=== PATIENT | female | born 1990 | race Caucasian/White ===

== ENCOUNTER 2023-09-29 14:33 | Outpatient (CLI) | payer BC, SELFPAY | END 2023-09-29 14:34 | disposition home or self-care (01) | PROVIDERS: PCP Physician Assistant Medical; Visit Provider Obstetrics & Gynecology | DX: N97.9 Female infertility, unspecified (principal) | CPT/HCPCS: 84443; 84702 ==

== ENCOUNTER 2023-10-12 18:11 | Emergency (ER) | payer BC, SELFPAY ==
[2023-10-12 18:20] VITALS: BP 145/92; PULSE 106; RESP 16; TEMP 36.7; O2SAT 100; BMI 34.0
--- NOTE | 2023-10-12 18:41 | US_ITS ---
Patient: JAYCOB BARCLAY Facility:?[facility] [place] [facility] Patient ID:?[id number] Site Patient ID:?[id number]. Site :?1990 Study:?US-OB Pelvis OB TV-10/12/2023 8:02:29 PM Ordering Physician:YOLA CRUZ M.D. Final Report: INDICATION: Abdominal pain. Evaluate for ectopic . Beta HCG 9324. TECHNIQUE: Transabdominal and transvaginal limited obstetric ultrasound examination of the pelvis was performed. Grayscale and color Doppler images were obtained. COMPARISON: None. FINDINGS: Uterus: Normal in echotexture. No suspicious masses. Endometrium: No significant endometrial free fluid. Intrauterine gestation: No definite intrauterine gestational sac is identified, the 11 mm cystic structure within the uterus could represent a pseudo gestational sac. cardiac activity: Not detected. Ovett-rump length: Not visualized. Yolk sac: Not visualized Perigestational hemorrhage: No. Estimated sonographic due date: 06/07/2024. Right Ovary: Measures 3.0 x 1.0 x 1.7 cm. No suspicious masses. Normal arterial and venous flow on color Doppler imaging. Left ovary: Measures 3.5 x 1.9 x 2.3 cm. Left corpus luteal cyst. A second, more superior heterogeneously echoic structure within the left ovary measures 1.6 cm, indeterminate. Normal arterial and venous flow on color Doppler imaging. Cul-de-sac: No free fluid. IMPRESSION: 1. No definite intrauterine gestational sac is identified. A embryonic pole should be visualized by 6 weeks gestational age, and the cystic structure within the uterus may represent a pseudogestational sac. This is compatible with of unknown location, ectopic is not excluded. 2. Heterogeneously echogenic structures within the left ovary may represent corpus luteal cyst, and possibly within normal limits in this patient with given history of fertility treatment. No pelvic free fluid to suggest hemoperitoneum. Recommend short interval follow-up beta HCG, repeat pelvic ultrasound and continued obstetric evaluation advised. Findings were communicated with Dr. Rosas at 9:19 PM on 10/12/2023. Dictated by Deangelo Zimmer MD @ 10/12/2023 9:21:23 PM Signed by:?Deangelo Zimmer MD @10/12/2023 9:21:23 PM (Electronic Signature)
--- NOTE | 2023-10-12 18:45 | ED.ABDPAIN ---
HPI - Abdominal Pain General Chief Complaint: Abdominal Pain Stated Complaint: abdominal pain, 6 weeks preg Time Seen by Provider: 10/12/23 18:12 History of Present Illness HPI narrative: This 33-year-old female states that she is about 6 weeks . She was involved in some fertility planning and had a he quantitative beta hCG done 2 weeks ago at 49. She comes in today at the advice of her clinic to rule out ectopic . She states that she has had some severe lower abdominal cramping starting today. She does not report any vaginal bleeding. Related Data Home Medications Medication Instructions Recorded Confirmed metformin 500 mg tablet 500 mg PO TID 09/29/23 09/29/23 docosahexaenoic acid PO 10/12/23 Allergies Allergy/AdvReac Type Severity Reaction Status Date / Time No Known Drug Allergies Allergy Verified 09/29/23 14:19 Review of Systems Status of ROS Reports: 10 or more systems reviewed and unremarkable except as noted in History and below Narrative Constitutional: No fevers, no weight gain or loss. Eyes: No discharge. No vision changes. HENT: No congestion, no sore throat, no ear pain. Cardiovascular: No chest pain, no palpitations. Respiratory: No shortness of breath, no wheezes, no cough. Gastrointestinal: No vomiting, no diarrhea. Lower abdominal pain. Genitourinary: No dysuria, no hematuria. Musculoskeletal: Normal range of motion. Skin: No rashes, no pruritis. Neurological: No dizziness, weakness, sensory change, speech change. Endo/Heme/Allergies: No bruising or bleeding. No polydipsia. Pysch: no suicidality, no anxiety, no insomnia. All other systems reviewed and are negative. [facility] Social History Smoking Status: Never smoker How often do you have a drink containing alcohol: never AUDIT-C Alcohol total score: 0 Non-prescribed substance use: denies use Exam Narrative: Exam Narrative: Constitutional: Well-developed, well-nourished, no acute distress. HEENT: Normocephalic, atraumatic. Neck: Normal range of motion. Nontender. Supple. Heart: Regular. No murmurs. Borderline tachycardia. Intact distal pulses. Lungs: Clear to auscultation. No chest discomfort. No wheezes, rhonchi, or rales. Abdomen: Normal bowel sounds. Diffuse lower abdominal pain. No rebound tenderness. Genitalia: Deferred. Back: No midline tenderness. Normal range of motion. Extremities: Normal range of motion. No injury. Skin: Intact. No rash. Warm. No erythema or pallor. Neurologic: No altered sensation. No weakness. Alert and oriented. Psychiatric: No suicidality. No anxiety or depression. No insomnia. Nursing notes and vitals signs are reviewed. Const: Vital Signs, click to edit/add: Vital Signs - 24 hr 10/12/23 18:20 10/12/23 21:07 Temperature 98.0 F 99.1 F Pulse Rate [Pulse Oximeter] 106 H 102 H Respiratory Rate 16 16 Blood Pressure [Ri ght Upper Arm] 145/92 H 142/88 H Pulse Oximetry 100 98 Oxygen Delivery Me thod Room Air Room Air Course Vital Signs Vital signs: Initial Vital Signs Temperature 98.0 F 10/12/23 18:20 Temperature Source Temporal Artery Scan 10/12/23 18:20 Pulse Rate 106 H 10/12/23 18:20 Respiratory Rate 16 10/12/23 18:20 Blood Pressure 145/92 H 10/12/23 18:20 Blood Pressure Mean 109 H 10/12/23 18:20 Blood Pressure Position Sitting 10/12/23 18:20 Pulse Oximetry 100 10/12/23 18:20 Oxygen Delivery Method Room Air 10/12/23 18:20 Vital Signs Temperature 98.0 F 10/12/23 18:20 Pulse Rate 106 H 10/12/23 18:20 Respiratory Rate 16 10/12/23 18:20 Blood Pressure 145/92 H 10/12/23 18:20 Pulse Oximetry 100 10/12/23 18:20 Oxygen Delivery Method Room Air 10/12/23 18:20 Temperature 99.1 F 10/12/23 21:07 Pulse Rate 102 H 10/12/23 21:07 Respiratory Rate 16 10/12/23 21:07 Blood Pressure 142/88 H 10/12/23 21:07 Pulse Oximetry 98 10/12/23 21:07 Oxygen Delivery Method Room Air 10/12/23 21:07 MDM - Abdominal Pain MDM Narrative Medical decision making narrative: This patient came in reporting abdominal pain as described above. She states that she has round 6 weeks . I did acquire a beta hCG level which returns at 9324. This is appropriate for about a 5 week gestation . An ultrasound is obtained and the radiologist called me stating that he did not see an intrauterine and there was some fluid around the ovaries. There was no fluid in the cul-de-sac and no findings that were obvious for ectopic . I relayed this information to the patient who is tearful of course in that she has been having difficulty getting and now is hearing that she may not have a viable intrauterine . I called the OB physician on-call which is her personal physician who looked at the images and stated that at 5 weeks this looked like a normal in the there was a gestational sac and a pole may not be very visible at this gestational age. The the director of services returned and together we went in to talk with the patient and gave updated information which was very reassuring to her. The OB physician on-call, Dr. Zimmer, is saying that this is what appears to be a normal . It is recommended to return next week for repeat ultrasound and beta hCG level. The patient is greatly reassured with these results and feels okay to return home. She is not having much pain at all anymore. She does have a history of polycystic ovarian disease and has been taking metformin for a long time. She has not had a ruptured ovarian cyst but may have had some pain related to some fluid leaking from her ovaries. Lab Data Labs: Lab Results 10/12/23 Range/Units 18:56 HCG, Quant 9324.40 mIU/mL Discharge Plan Discharge Clinical Impression: Abdominal pain Patient Disposition: Home, Self-Care Condition: Stable Additional Instructions: Follow-up with OB Clinic to obtain ultrasound next week. Return if worsening. Prescriptions: No Action metformin 500 mg tablet 500 mg PO TID docosahexaenoic acid [ DHA] PO Follow Up/Referrals: Norma Rodriguez PA-C [Primary Care Provider] - Stand Alone Forms: [employer] Info Instructions
[2023-10-12 21:07] VITALS: BP 142/88; PULSE 102; RESP 16; TEMP 37.3; O2SAT 98
== END 2023-10-12 21:58 | disposition home or self-care (01) ==
PROVIDERS: Emergency Provider Emergency Medicine Emergency Medical Services; PCP Physician Assistant Medical
DX: R10.9 Unspecified abdominal pain (principal)
CPT/HCPCS: 36415; 76817; 84702; 99283; 99284

== ENCOUNTER 2023-10-16 10:36 | Outpatient (CLI) | payer BC, SELFPAY | END 2023-10-16 10:37 | disposition home or self-care (01) | PROVIDERS: PCP Physician Assistant Medical; Visit Provider Advanced Practice Midwife | DX: Z32.01 Encounter for pregnancy test, result positive (principal); R10.9 Unspecified abdominal pain | CPT/HCPCS: 84702; 87086 ==

== ENCOUNTER 2023-10-19 08:55 | Outpatient (CLI) | payer BC, SELFPAY | END 2023-10-19 08:56 | disposition home or self-care (01) | LOC: NFLDREF 08:56 | PROVIDERS: PCP Physician Assistant Medical; Visit Provider Advanced Practice Midwife | DX: Z34.91 Encounter for supervision of normal pregnancy, unspecified, first trimester (principal) | CPT/HCPCS: 84702 ==

== ENCOUNTER 2023-10-23 08:57 | Outpatient (CLI) | payer BC, SELFPAY ==
--- NOTE | 2023-10-23 09:15 | US_ITS ---
Patient: JAYCOB BARCLAY Facility:?[facility] Patient ID:?[id number] Site Patient ID:?[id number]. Site :?1990 Study:?US-OB Pelvis OB TV-10/23/2023 9:47:58 AM Ordering Physician:?HUNTER REDDING CNM Final Report: INDICATION: Follow-up viability COMPARISON: None. TECHNIQUE: Real-time thurman-scale imaging of the pelvis was performed. FINDINGS: Sonographic imaging demonstrates a single living intrauterine gestation. The embryo demonstrates a regular cardiac rate measuring 121 beats per minute. The embryo`s crown-rump length measurement of 0.7 cm corresponds to a gestational age of 6 weeks 4 days with a sonographic due date of 06/13/2024. There is a normal-appearing yolk sac. There are no gross abnormalities noted within the embryo at this early state of development. The gestational sac has a normal appearance. There is no evidence of a perigestational hemorrhage. The amount of fluid within the sac appears appropriate for gestational age. The cervix is closed. The myometrium appears normal. The left ovary appears normal. The right ovary is not visualized. There are no suspicious fluid collections noted in the cul-de-sac. IMPRESSION: Single living intrauterine with sonographic gestational age 6 weeks 4 days and sonographic due date 06/13/2024. Dictated by Sher Moreland MD @ 10/23/2023 11:37:42 AM Signed by:?Sher Moreland MD @10/23/2023 11:37:42 AM (Electronic Signature)
== END 2023-10-23 08:58 | disposition home or self-care (01) ==
LOC: US 08:57
PROVIDERS: PCP Physician Assistant Medical; Visit Provider Advanced Practice Midwife
DX: Z34.91 Encounter for supervision of normal pregnancy, unspecified, first trimester (principal); Z3A.01 Less than 8 weeks gestation of pregnancy
CPT/HCPCS: 76817; 86592; 86703; 86704; 86706; 86762; 86787; 86803; 86850; 86900; 86901; 87086; 87340; 87491; 87591

== ENCOUNTER 2023-12-18 09:39 | Outpatient (CLI) | payer BC, SELFPAY | END 2023-12-18 09:40 | disposition home or self-care (01) | PROVIDERS: PCP Physician Assistant Medical; Visit Provider Obstetrics & Gynecology | DX: O10.912 Unspecified pre-existing hypertension complicating pregnancy, second trimester (principal); Z3A.14 14 weeks gestation of pregnancy | CPT/HCPCS: 82565; 82570; 84156; 84450; 84460; 84520 ==

== ENCOUNTER 2024-01-25 08:46 | Outpatient (CLI) | payer BC, SELFPAY | END 2024-01-25 08:47 | disposition home or self-care (01) | PROVIDERS: PCP Physician Assistant Medical; Visit Provider Obstetrics & Gynecology | DX: O10.912 Unspecified pre-existing hypertension complicating pregnancy, second trimester (principal); Z3A.20 20 weeks gestation of pregnancy | CPT/HCPCS: 84450; 84460 ==

== ENCOUNTER 2024-02-08 07:45 | Outpatient (CLI) | payer BC, SELFPAY | END 2024-02-08 07:46 | disposition home or self-care (01) | LOC: NFLDREF 02-09 08:44 | PROVIDERS: PCP Physician Assistant Medical; Referring Provider Physician Assistant Medical; Visit Provider Obstetrics & Gynecology | DX: O99.810 Abnormal glucose complicating pregnancy (principal) | CPT/HCPCS: 82951; 82952 ==

== ENCOUNTER 2024-03-07 08:12 | Outpatient (CLI) | payer BC, SELFPAY ==
--- NOTE | 2024-03-07 08:15 | CRLHL7_ITS ---
For Patients: As a result of the Century Cures Act, medical imaging exams and procedure reports are released immediately into your electronic medical record. You may view this report before your referring provider. If you have questions, please contact your health care provider. INDICATION: Third trimester scan, evaluate growth. growth and recheck Succenturiate placenta, GDM COMPARISON: 10/23/2023, 02/09/2024 TECHNIQUE: Real time thurman scale imaging of the fetus was performed. FINDINGS: Sonographic imaging demonstrates a single living intrauterine gestation. Fetus demonstrates a regular cardiac rate of 130 beats per minute. Fetus has a vertex position. The placenta lies left anterior. Succenturiate placenta again noted. Amniotic fluid volume appears normal and there is a single deepest vertical pocket: 5.6 cm. The estimated weight is 1089gm which lies at the 94th %. BPD 88th percentile. HC 70th percentile. AC 92nd percentile. FL 64th percentile the HC/AC ratio measures 1.06 range (1.04-1.22). IMPRESSION: Sonographic gestational age 27 weeks 3 days and sonographic due date of 06/03/2024. Sonographic age 10 days ahead of the clinical age. Estimated weight 94th percentile. Abdominal circumference 92nd percentile. Succenturiate placenta is unchanged. Dictated by Sher Moreland MD @ 03/07/2024 10:30:38 AM (Electronically Signed)
== END 2024-03-07 08:13 | disposition home or self-care (01) ==
LOC: US 08:13
PROVIDERS: PCP Physician Assistant Medical; Visit Provider Obstetrics & Gynecology
DX: O43.192 Other malformation of placenta, second trimester (principal); Z3A.27 27 weeks gestation of pregnancy
CPT/HCPCS: 76816

== ENCOUNTER 2024-03-22 12:23 | Outpatient (CLI) | payer BC, SELFPAY | END 2024-03-22 12:24 | disposition home or self-care (01) | LOC: NFLDREF 12:24 | PROVIDERS: PCP Physician Assistant Medical; Visit Provider Physician Assistant | DX: Z34.93 Encounter for supervision of normal pregnancy, unspecified, third trimester (principal); Z3A.28 28 weeks gestation of pregnancy | CPT/HCPCS: 86592 ==

== ENCOUNTER 2024-04-04 09:19 | Outpatient (CLI) | payer BC, SELFPAY ==
--- NOTE | 2024-04-04 09:15 | CRLHL7_ITS ---
For Patients: As a result of the Century Cures Act, medical imaging exams and procedure reports are released immediately into your electronic medical record. You may view this report before your referring provider. If you have questions, please contact your health care provider. INDICATION: growth, succenturiate placenta COMPARISON: 03/07/2024 TECHNIQUE: Real time thurman scale imaging of the fetus was performed. FINDINGS: Sonographic imaging demonstrates a single living intrauterine gestation. Fetus demonstrates a regular cardiac rate of 142 beats per minute. Fetus has a vertex position. The placenta lies anteriorly. Amniotic fluid volume appears normal and there is a single deepest vertical pocket: 5.6 cm. The estimated weight is 1696gm which lies at the 76th %. On the prior OB ultrasound exam dated 03/07/2024 the estimated weight was at the 94th%. BPD 76th percentile. HC 71st percentile. AC 85th percentile. FL 40th percentile. The HC/AC ratio measures 1.06 range (0.96-1.17). IMPRESSION: Sonographic gestational age 31 weeks 1 day and sonographic due date 06/05/2024. Sonographic age 8 days ahead of the clinical age. Estimated weight 76th percentile. Abdominal circumference 85th percentile. Dictated by Sher Moreland MD @ 04/04/2024 10:04:30 AM (Electronically Signed)
== END 2024-04-04 09:20 | disposition home or self-care (01) ==
LOC: US 09:20
PROVIDERS: PCP Physician Assistant Medical; Visit Provider Obstetrics & Gynecology
DX: O43.193 Other malformation of placenta, third trimester (principal); Z3A.31 31 weeks gestation of pregnancy
CPT/HCPCS: 76816

== ENCOUNTER 2024-04-11 19:46 | Outpatient (CLI) | payer BC, SELFPAY ==
[2024-04-11 20:09] VITALS: BP 131/81; PULSE 78; TEMP 37.1
--- NOTE | 2024-04-11 20:57 | PC.OBNST ---
NST Note NST Note Start: 04/11/24 19:58 Freq: ONCE Status: Active Protocol: Document 04/11/24 20:53 PRETTYLois (Rec: 04/11/24 20:57 PRETTYLois [id number]) NST Note 1 Para (# of births) 0 EDC 06/13/24 Gestational Age In Weeks & Days 31 Weeks & 0 Days High Risk Factors High Blood Pressure - Preexisting,Diabetes - Gestational Insulin Patient Presented with Complaint(s) of Headache Other Complaints Patient had an episode around 5pm where she felt like she was going to pass out and has just felt off all day Reactive Yes Appropriate for Gestational Age Yes DA Schroeder RNC Date 04/11/24 Reactive Yes Appropriate for Gestational Age Yes DA Sanz RN Date 04/11/24 OB NST charge Yes Complete NST Note via Write Note Yes The provider's electronic signature indicates the NST is reactive/appropriate for gestational age. *Note to provider: If an addendum is required, open the patient's chart and click on the note under the Nurse/Allied Health tab.
== END 2024-04-11 21:00 | disposition home or self-care (01) ==
LOC: OB OUT 19:48 → OB 19:49
PROVIDERS: PCP Physician Assistant Medical; Visit Provider Obstetrics & Gynecology
DX: O10.913 Unspecified pre-existing hypertension complicating pregnancy, third trimester (principal); O24.419 Gestational diabetes mellitus in pregnancy, unspecified control; Z3A.31 31 weeks gestation of pregnancy
CPT/HCPCS: 59025; G0463

== ENCOUNTER 2024-04-18 07:15 | Outpatient (CLI) | payer BC, SELFPAY ==
--- NOTE | 2024-04-18 07:15 | CRLHL7_ITS ---
For Patients: As a result of the Cures Act, medical imaging exams and procedure reports are released immediately into your electronic medical record. You may view this report before your referring provider. If you have questions, please contact your health care provider. Indication: GDM history of succenturiate placenta RONNIE: 06/13/2024. Technique: Real-time sonographic images of the pelvis were obtained transabdominally using grayscale, color, and Doppler imaging. Comparison: 04/04/2024. Findings: A single intrauterine is present in cephalic position. Cardiac activity in the fetus is demonstrated at 147 BPM. Placenta: Anterior and posterior, succenturiate placenta. No previa or abruption. Amniotic Fluid: Single deepest pocket measuring 7.0 centimeter. Biophysical profile: Breathin/2 Movement: 2/2 Tone: 2/2 Fluid volume: 2/2 Total: 6/8 Impression: 1. Single living intrauterine gestation in cephalic presentation, with heartrate 147 BPM. 2. Anterior and posterior succenturiate placenta without previa or abruption. 3. Amniotic fluid single deepest pocket measuring 7.0 centimeter. 4. BPP 6/8. 0/2 for breathing. RN notified per cafe operator notes. Dictated by Lorenzo Pérez MD @ 04/20/2024 10:38:34 AM (Electronically Signed)
== END 2024-04-18 07:16 | disposition home or self-care (01) ==
LOC: US 07:15
PROVIDERS: PCP Physician Assistant Medical; Visit Provider Physician Assistant
DX: O24.419 Gestational diabetes mellitus in pregnancy, unspecified control (principal)
CPT/HCPCS: 76819

== ENCOUNTER 2024-04-18 09:12 | Outpatient (CLI) | payer BC, SELFPAY ==
[2024-04-18 09:31] VITALS: BP 137/74; PULSE 93; PULSE 97; TEMP 36.8; O2SAT 98
--- NOTE | 2024-04-18 10:15 | PC.OBNST ---
NST Note NST Note Start: 04/18/24 09:14 Freq: ONCE Status: Active Protocol: Document 04/18/24 09:56 ALZ (Rec: 04/18/24 09:59 ALZ Desktop) NST Note 1 Para (# of births) 0 EDC 06/13/24 Gestational Age In Weeks & Days 32 Weeks & 0 Days High Risk Factors Diabetes - Gestational Insulin Patient Presented with Complaint(s) of Other Other Complaints BPP 12/22, OB provider from clinic requested NST in L&D triage. Reactive Yes Appropriate for Gestational Age Yes DA Fowler Date 04/18/24 Reactive Yes Appropriate for Gestational Age Yes DA Kirby Date 04/18/24 OB NST charge Yes Complete NST Note via Write Note Yes The provider's electronic signature indicates the NST is reactive/appropriate for gestational age. *Note to provider: If an addendum is required, open the patient's chart and click on the note under the Nurse/Allied Health tab.
== END 2024-04-18 10:18 | disposition home or self-care (01) ==
LOC: OB OUT 09:12 → OB 09:13
PROVIDERS: PCP Physician Assistant Medical; Visit Provider Obstetrics & Gynecology
DX: O24.419 Gestational diabetes mellitus in pregnancy, unspecified control (principal)
CPT/HCPCS: 59025; 76819; G0463

== ENCOUNTER 2024-04-25 08:10 | Outpatient (CLI) | payer BC, SELFPAY ==
--- NOTE | 2024-04-25 08:15 | CRLHL7_ITS ---
For Patients: As a result of the Century Cures Act, medical imaging exams and procedure reports are released immediately into your electronic medical record. You may view this report before your referring provider. If you have questions, please contact your health care provider. INDICATION: GDM COMPARISON: none TECHNIQUE: Real time thurman scale imaging of the fetus was performed. Without non-stress testing. FINDINGS: Sonographic imaging demonstrates a single living intrauterine gestation. Fetus demonstrates a regular cardiac rate of 134 beats per minute. Fetus has a vertex position. The amniotic fluid volume appears normal and there is a single deepest pocket measurement of 7.8 cm. The fetus was active and demonstrated normal breathing movements. There was normal flexion and extension of the trunk and extremities. IMPRESSION: Normal biophysical profile score of 8 out of 8. Dictated by Sher Moreland MD @ 04/25/2024 11:49:21 AM (Electronically Signed)
== END 2024-04-25 08:11 | disposition home or self-care (01) ==
LOC: US 08:10
PROVIDERS: PCP Physician Assistant Medical; Visit Provider Physician Assistant
DX: O24.419 Gestational diabetes mellitus in pregnancy, unspecified control (principal)
CPT/HCPCS: 76819

== ENCOUNTER 2024-05-02 08:54 | Outpatient (CLI) | payer BC, SELFPAY ==
--- NOTE | 2024-05-02 09:30 | CRLHL7_ITS ---
For Patients: As a result of the Century Cures Act, medical imaging exams and procedure reports are released immediately into your electronic medical record. You may view this report before your referring provider. If you have questions, please contact your health care provider. INDICATION: Gestational diabetes TECHNIQUE: Real time thurman scale imaging of the fetus was performed. COMPARISON: 04/25/2024 FINDINGS: Sonographic imaging demonstrates a single living intrauterine gestation. Fetus demonstrates a regular cardiac rate of 149 beats per minute. Fetus has a vertex position. The placenta lies anterior and posterior. Amniotic fluid volume appears normal and there is a single deepest pocket of 5.5 cm. The estimated weight is 2490gm which lies at the 65th %. On the prior OB ultrasound dated 01/19/2024 the estimated weight was at the 60th percentile. BPD 96th percentile. HC 72nd percentile. AC 59th percentile. FL 53rd percentile. The fetus was active and demonstrated normal breathing movements. There was normal flexion and extension of the trunk and extremities. IMPRESSION: Normal biophysical profile score 8/8. Sonographic gestational age 35 weeks 2 days and sonographic due date of 06/04/2024. Sonographic age 9 days ahead of the clinical age. Estimated weight is 65th percentile. Abdominal circumference 59th percentile. Bilobed placenta located at the anterior and posterior aspects. Dictated by Sher Moreland MD @ 05/06/2024 4:11:31 PM (Electronically Signed)
== END 2024-05-02 08:55 | disposition home or self-care (01) ==
LOC: US 08:54
PROVIDERS: PCP Physician Assistant Medical; Visit Provider Physician Assistant
DX: O24.419 Gestational diabetes mellitus in pregnancy, unspecified control (principal); Z3A.35 35 weeks gestation of pregnancy
CPT/HCPCS: 76816; 76819

== ENCOUNTER 2024-05-09 08:13 | Outpatient (CLI) | payer BC, SELFPAY ==
--- NOTE | 2024-05-09 08:15 | CRLHL7_ITS ---
For Patients: As a result of the Century Cures Act, medical imaging exams and procedure reports are released immediately into your electronic medical record. You may view this report before your referring provider. If you have questions, please contact your health care provider. INDICATION: GDM COMPARISON: 05/02/2024 TECHNIQUE: Real time thurman scale imaging of the fetus was performed. Without non-stress testing. FINDINGS: Sonographic imaging demonstrates a single living intrauterine gestation. Fetus demonstrates a regular cardiac rate of 141 beats per minute. Fetus has a vertex position. The amniotic fluid volume appears normal and there is a single deepest pocket measurement of 6.3 cm. The fetus was active and demonstrated normal breathing movements. There was normal flexion and extension of the trunk and extremities. IMPRESSION: Normal biophysical profile score of 8 out of 8. Dictated by Sher Moreland MD @ 05/09/2024 9:56:51 AM (Electronically Signed)
== END 2024-05-09 08:14 | disposition home or self-care (01) ==
LOC: US 08:13
PROVIDERS: PCP Physician Assistant Medical; Visit Provider Physician Assistant
DX: O24.419 Gestational diabetes mellitus in pregnancy, unspecified control (principal)
CPT/HCPCS: 76819; 87081; 87653

== ENCOUNTER 2024-05-16 09:16 | Outpatient (CLI) | payer BC, SELFPAY ==
--- NOTE | 2024-05-16 09:15 | CRLHL7_ITS ---
For Patients: As a result of the Century Cures Act, medical imaging exams and procedure reports are released immediately into your electronic medical record. You may view this report before your referring provider. If you have questions, please contact your health care provider. INDICATION: Succenturiate placenta COMPARISON: 05/09/2024 TECHNIQUE: Real time thurman scale imaging of the fetus was performed. Without non-stress testing. FINDINGS: Sonographic imaging demonstrates a single living intrauterine gestation. Fetus demonstrates a regular cardiac rate of 150 beats per minute. Fetus has a vertex position. The amniotic fluid volume appears normal and there is a single deepest pocket measurement of 5.8 cm. The fetus was active and demonstrated normal breathing movements. There was normal flexion and extension of the trunk and extremities. IMPRESSION: Normal biophysical profile score of 8 out of 8. Dictated by Sher Moreland MD @ 05/16/2024 12:30:07 PM (Electronically Signed)
== END 2024-05-16 09:17 | disposition home or self-care (01) ==
LOC: US 09:17
PROVIDERS: PCP Physician Assistant Medical; Visit Provider Obstetrics & Gynecology
DX: O43.199 Other malformation of placenta, unspecified trimester (principal)
CPT/HCPCS: 76819

== ENCOUNTER 2024-05-18 20:11 | Outpatient (CLI) | payer BC, SELFPAY ==
[2024-05-18] VITALS (9 sets, daily range): BP systolic 125–135; BP diastolic 82–91; PULSE 91–107; O2SAT 97–99
--- NOTE | 2024-05-18 21:07 | PC.OBNST ---
NST Note NST Note Start: 05/18/24 20:24 Freq: ONCE Status: Active Protocol: Document 05/18/24 21:[address] [facility] (Rec: 05/18/24 21:[address] [facility] [id number]) NST Note 1 Para (# of births) 0 EDC 06/13/24 Gestational Age In Weeks & Days 36 Weeks & 2 Days High Risk Factors High Blood Pressure - Preexisting,Diabetes - Gestational Insulin Patient Presented with Complaint(s) of Decreased movement Reactive Yes Appropriate for Gestational Age Yes DA Carter RN Date 05/18/24 Reactive Yes Appropriate for Gestational Age Yes DA Anne RN Date 05/18/24 OB NST charge Yes Complete NST Note via Write Note Yes The provider's electronic signature indicates the NST is reactive/appropriate for gestational age. *Note to provider: If an addendum is required, open the patient's chart and click on the note under the Nurse/Allied Health tab.
== END 2024-05-18 21:06 | disposition home or self-care (01) ==
LOC: OB OUT 20:11 → OB 20:12
PROVIDERS: PCP Physician Assistant Medical; Visit Provider Obstetrics & Gynecology
DX: O10.913 Unspecified pre-existing hypertension complicating pregnancy, third trimester (principal); O24.419 Gestational diabetes mellitus in pregnancy, unspecified control; Z3A.36 36 weeks gestation of pregnancy
CPT/HCPCS: 59025; G0463

== ENCOUNTER 2024-05-20 10:09 | Outpatient (CLI) | payer BC, SELFPAY ==
[2024-05-20] VITALS (8 sets, daily range): BP systolic 125–146; BP diastolic 76–89; PULSE 90–100; RESP 16; TEMP 36.5; O2SAT 100
--- NOTE | 2024-05-20 10:28 | CRLHL7_ITS ---
For Patients: As a result of the Century Cures Act, medical imaging exams and procedure reports are released immediately into your electronic medical record. You may view this report before your referring provider. If you have questions, please contact your health care provider. INDICATION: Nonreassuring heart rate tracing TECHNIQUE: Ultrasound OB pelvis transabdominal. Real-time thurman-scale imaging of the fetus was performed without stress testing. COMPARISON: None. FINDINGS: heart rate: 161 bpm. position: Cephalic. Amniotic fluid volume single deepest pocket 6.6 cm, 2/2. motion 2/2, without recorded images. tone 2/2, without recorded images. breathing movements 2/2, without recorded images Placenta: Anterior placenta with posterior succenturiate lobe. Cervix not visualized. IMPRESSION: Duran intrauterine with a biophysical profile 02/21. Cardiac activity is present. Anterior placenta with posterior succenturiate lobe. Dictated by Shonna Lindsay MD @ 05/20/2024 11:19:53 AM (Electronically Signed)
[2024-05-20 11:23] LABS: Hematocrit 37.9 % (33.0-51.0); Hemoglobin* 12.8 gm/dL (12.0-16.0); Mean Corpuscular HGB Conc 34 gm/dL (32-36); Mean Corpuscular Hemoglobin 30 pg (26-34); Mean Corpuscular Volume 88 fL (80-100); Platelet Count* 232 K/uL (140-440); Red Blood Count 4.32 m/uL (4.00-5.20)
[2024-05-20 11:27] LABS: Slide Review Reflex Yes
[2024-05-20 11:37] LABS: Total Protein Urine 9 mg/dL
[2024-05-20 11:38] LABS: Creatinine Urine 95.5 mg/dL; Protein Creatinine Ratio Urine 0.09 (0-0.19)
[2024-05-20 11:42] LABS: Alanine Aminotransferase* 19 U/L (4-35); Aspartate Amino Transferase* 23 U/L (12-35); Blood Urea Nitrogen* 12 mg/dL (5-24); Creatinine* 0.4 mg/dL (0.5-1.5); Estimated Glomerular Filt Rate 136 ml/min
--- NOTE | 2024-05-20 12:36 | PM.OBLDTN ---
OB - Triage/Final Diagnosis Visit Information Time Seen by Provider: 12:00 Date Seen: 05/20/24 Date of evaluation: 05/20/24 Narrative: Patricia is a 33 year old G1 para 0 at 36.4 weeks gestation by US, who initially presented for her scheduled NST for surveillance of CHTH and GDMA2. Her clinic NST was nonreassuring. Baseline: 145 bpm, moderate variability, + accelerations, she has two deceleration (1 late to 130s for 1 min and variable deceleration to 100 lasting for 10 seconds). Both resolved spontaneously without intervention. She was sent to the center for extended monitoring and BPP. Patricia reports coming into triage 2 days ago due to decreased movements and was told everything was appropriate. Reports decreased movements this morning as well. Has improved since the day progressed but she is anxious because she's used to baby being more active. Reassuring her BPP today was 8/8 with SDP 6.6 cm. Prolonged monitoring was reassurin bpm, moderate variability, multiple qualifying accelerations, negative decelerations. [place]: irregular contractions Notably she had a mild ranging BP on 05/18 of 135/91 and today she had BP of 146/89. This has not been her baseline. She has not had mild ranging BP since October 15. PreE labs were wnl. Denies any persistent headache, vision changes, SOB, right upper quadrant/epigastric pain, or rapidly expanding edema. Discussed planned of care with her. While her evaluation is reassuring currently, she does have several signs of worsening uteroplacental insufficiency such as worsening chronic hypertension, decreased movement, decelerations on her NST. Additionally, she has an abnormal placenta as well (succenturiate placenta). Given these consideration, I think it's appropriate to induce her at 37 weeks for worsening CHTN as opposed to starting meds as she is already 36.4 weeks. Patricia is overwhelmed but is ultimately grateful for the plan as she is concerned about her symptoms as well. Denies LOF, vaginal bleeding or abnormal vaginal discharge. Rare contractions. Physical exam: General: No acute distress Psych: Alert and oriented x4, full affect HEENT: Normocephalic, atraumatic Neck: No cervical adenopathy, no thyromegaly Heart: Regular rate and rhythm, no murmur rub or gallop Lungs: Clear to auscultation bilaterally Abdomen: Gravid. soft, no tenderness, rebound, or guarding Skin: No lesions or rashes Lower extremities: No edema or erythema Pelvic exam: Dry perineum. ft/50/-4, moderately soft, posterior. Arguello score of 2. Plan: - Cervical ripening with misoprostol on May 22 PM at 36.6weeks. - She will bring in her consent form that we reviewed in clinic last visit. - Strict return and labor precautions reinforced. Evaluation Laboratory results: Laboratory Tests 05/20/24 05/20/24 Range/Units 11:20 11:11 WBC 10.80 (4.50-11.00) K/uL RBC 4.32 (4.00-5.20) m/uL Hgb 12.8 (12.0-16.0) gm/dL Hct 37.9 (33.0-51.0) % MCV 88 (80-100) fL MCH 30 (26-34) pg MCHC 34 (32-36) gm/dL Plt Count 232 (140-440) K/uL Diff Slide Review Pending BUN 12 (5-24) mg/dL Creatinine 0.4 L (0.5-1.5) mg/dL Estimated GFR 136 ml/min AST 23 (12-35) U/L ALT 19 (4-35) U/L Urine Creatinine 95.5 mg/dL Protein/Creatinin Ratio 0.09 (0-0.19) Urine Total Protein 9 mg/dL Vital signs: Vital Signs - 24 hr 05/20/24 10:18 05/20/24 10:20 05/20/24 10:21 Temperature 97.7 F Pulse Rate 100 Respiratory Rate 16 Blood Pressure 146/89 H Pulse Oximetry 100 05/20/24 10:37 05/20/24 10:37 05/20/24 11:19 Temperature Pulse Rate 100 Respiratory Rate Blood Pressure 137/86 133/83 Pulse Oximetry 05/20/24 11:19 05/20/24 11:34 05/20/24 11:34 Temperature Pulse Rate 96 90 Respiratory Rate Blood Pressure 129/80 Pulse Oximetry 05/20/24 11:48 05/20/24 11:48 05/20/24 12:03 Temperature Pulse Rate 93 Respiratory Rate Blood Pressure 125/76 137/88 Pulse Oximetry 05/20/24 12:03 Temperature Pulse Rate 95 Respiratory Rate Blood Pressure Pulse Oximetry
--- NOTE | 2024-05-20 12:38 | PC.OBNST ---
NST Note NST Note Start: 05/20/24 10:29 Freq: ONCE Status: Active Protocol: Document 05/20/24 12:37 CUDDYH (Rec: 05/20/24 12:38 CUDDYH [id number]) NST Note 1 Para (# of births) 0 EDC 06/13/24 Gestational Age In Weeks & Days 36 Weeks & 4 Days High Risk Factors High Blood Pressure - Preexisting,Diabetes - Gestational Insulin Patient Presented with Complaint(s) of Other Other Complaints Pt seen in clinic and had nonreasuring FHR tracing. Sent to Center for further evaluation. Reactive Yes Appropriate for Gestational Age Yes RN Aura Stephens RN Date 05/20/24 Reactive Yes Appropriate for Gestational Age Yes RN Dr. Zimmer Date 05/20/24 OB NST charge Yes Complete NST Note via Write Note Yes The provider's electronic signature indicates the NST is reactive/appropriate for gestational age. *Note to provider: If an addendum is required, open the patient's chart and click on the note under the Nurse/Allied Health tab.
[2024-05-20 15:50] LABS: Slide Review Acceptable Review (Acceptable)
== END 2024-05-20 12:28 | disposition home or self-care (01) ==
LOC: OB OUT 10:10 → OB 10:10
PROVIDERS: PCP Physician Assistant Medical; Visit Provider Obstetrics & Gynecology
DX: O10.913 Unspecified pre-existing hypertension complicating pregnancy, third trimester (principal); O24.419 Gestational diabetes mellitus in pregnancy, unspecified control; Z3A.36 36 weeks gestation of pregnancy
CPT/HCPCS: 36415; 59025; 76819; 82565; 82570; 84156; 84450; 84460; 84520; 85027; G0463

== ENCOUNTER 2024-05-22 15:44 | Inpatient (IN) | payer BC, SELFPAY ==
--- NOTE | 2024-05-22 16:19 | P.OBHP_ITS ---
OB - H&P: HPI Labor/Induction History of Present Illness Time Seen by Provider: 17:00 Date Seen: 05/22/24 Chief complaint: IOL for worsening CHTN Narrative: The patient is a 33 year old 1 para 0 at 36w6d gestation by first trimester US, who presents for scheduled induction of labor. is complicated by chronic hypertension, where she has been noted to have worsening blood pressures over the last week. In addition, she has had periods of decrea sed movement. As such, she was recommended to have a medically indicated induction of labor in the setting of chronic hypertension exacerbation at 37 weeks. is otherwise complicated by GDM A2, succenturiate placenta and elevated BMI. She presents tonight for cervical ripening. Patricia notes she is feeling well. She denies any regular/painful uterine contractions, vaginal bleeding or leaking of fluid. Endorses active movement. Denies headache, vision changes or right upper quadrant pain. Specific Issues/Plans : Tuan. Baby: Boy! Marcelina -Chronic HTN: not on meds as of 04/04/2024 - Baseline labs ordered at 14 weeks: AST 44, otherwise normal labs. - Repeated LFTs on 01/25/2024 @ 20 weeks: AST 33 - s/p Level II ultrasound and MFM consult on 01/19/2024 - Recommend serial growth ultrasound every 4 weeks starting at 26 weeks (due to chronic htn and succernturiate lobe). - BPP weekly at 36 weeks - Delivery 38-39 weeks - surveillance per GDMA2 - IOL scheduling for turned in for 06/02 PM for cervical ripening at 38w3d - To turn in consent form on 05/23: [x] - Cervical exam on 05/30 to confirm IOL plan: [] - Gestational diabetes diagnosed on 02/08/2024 at 22 weeks gestation. GDM A2. Diabeties Education and initiation of insulin 03/22/2024. She has growth ultrasounds every 4 weeks starting at 26 weeks. Will start testing twice weekly at 32 weeks: Order form 03/22/24 04/04/2024: NPH 16u QHS. Elevated: 11/27 fasting, postprandial. 04/18/24: FBS all but 1 elevated, more than half PP levels elevated, recommend to add NPH in am as well, continue with NPH 30 units in am, 17 units in pm. - Succenturiate placenta/Bilobed placenta? - Posterior. Communicating vessels are not near the uterine cervix. - No placenta previa or Vasa previa - Recommend careful evaluation of the placenta at the delivery to ensure complete delivery. -BMI 35 -Needs baby aspirin at 12 weeks - testing per GDMA2 -PCOS -previous on metformin. Discontinued per MFM. -Early GDM screening at 20 weeks: diagnosed with GDM. US - 01/19/24: [place] . EFW at the 60%. AC at the 73%. Anterior placenta with no previa. Two Succenturiate lobes, 1 is posterior left lateral and the other is posterior right lateral. No evidence of Vasa previa. Three- vessel cord. Normal insertion site. MVP of 7.0 cm. Cervical length 4.8 cm. Repeat ultrasound in 3 weeks to re-evaluate growth and anatomy that was sub optimally seen. 02/09/24: Level 2. anterior/left placenta with succenturiate lobe right lateral uterine wall, vessel seen connecting this lobe to main lobe (not near the cervix), MVP 6.4 cm, EFW 78%, AC 67%. Remainder of anatomic survey was normal. 03/07/24: EFW 93rd percentile, AC 92nd %. SDP 5.6 cm. 04/04/24: Vtx. SDP: 5.6cm. EFW: 1696 gm, 3 lb 12 oz, 76%. BPD 76%, HC 71%, AC 85%, FL 40%. 05/02/24: Vertex, SDP: 5.5 cm. EFW: 2490 g, 65 percentile. BPD: 96 percentile, HC: 72 percentile, AC: 59 percentile, FL: 53 percentile. BPP 8/8. Bilobed placenta located at the anterior and posterior aspects. Immunizations: Flu: Declines Covid: Declines Tdap: 04/04/2024 RSV: 05/16/2024 Meds Home Medications and Allergies Home Medications ?Medication ?Instructions ?Recorded ?Confirmed ?Type docosahexaenoic acid PO 10/12/23 05/20/24 History aspirin 81 mg tablet,delayed 81 mg PO QDAY 01/25/24 05/20/24 History release Allergies Allergy/AdvReac Type Severity Reaction Status Date / Time No Known Drug Allergies Allergy Verified 05/20/24 09:25 OB - H&P: Exam Physical Exam: Narrative: Physical exam: General: No acute distress Psych: Alert and oriented x3, full affect Heart: Regular rate and rhythm, no murmur rub or gallop Lungs: Clear to auscultation bilaterally Abdomen: Gravid. Otherwise soft and nontender. EFW 2490g by US on 05/02/24. heart rate: Reactive NST. Baseline of 135 beats per minute, moderate variability, accelerations present, decelerations absent. Cervix: Fingertip by last exam by Dr. Zimmer. Presentation: Cephalic by [facility] and 05/20 US. OB - Problem Based A/P Additional Plan (1) Gestational diabetes: Status: Acute (2) Chronic hypertension affecting : Status: Acute (3) : Status: Acute (4) GERD (gastroesophageal reflux disease): Status: Acute Plan Patricia is a 33-year-old at 36 weeks 6 days gestational age admitted for scheduled induction of labor. is complicated by chronic hypertension with recent exacerbation prompting medically indicated delivery, GDM A2, succenturiate placenta and elevated BMI. - Admit to Labor and delivery. Plan to start induction with Cytotec per vagina per protocol. Described anticipated next steps to the patient including Pitocin and amniotomy tomorrow. - Diligent blood pressure monitoring intrapartum. Normotensive on admission. - Baseline HELLP labs on admission, repeat as clinically indicated for sustained severe range blood pressures or change in patient's symptoms. - Patient typically takes 17 units of NPH insulin at bedtime and 30 units of NPH insulin at noon. Plan to give her at 8 units of NPH insulin tonight, and follow GDM protocol with 2 hour postprandial values and sliding scale insulin as required. Plan to reassess the need for long-acting insulin tomorrow pending her glycemic control and labor progress overnight. - Blood type O positive - GBS negative - Succenturiate placenta noted, plan to inspect placenta following delivery
[2024-05-22 16:33] VITALS: BP 132/87; PULSE 90
[2024-05-22] MEDS: miSOPROStoL 25 MCG/0.25 TABLET VAGINAL ×2 (17:20→21:18)
[2024-05-22 18:00] LABS: Basophils Percent Auto 0.1 % (0.0-3.0); Eosinophils Percent Auto 0.5 % (0.0-7.0); Hematocrit 35.9 % (33.0-51.0); Hemoglobin* 12.2 gm/dL (12.0-16.0); Immature Granulocytes Pct Auto 0.7 %; Lymphocytes Percent Auto 19.7 % (20-44); Mean Corpuscular HGB Conc 34 gm/dL (32-36); Mean Corpuscular Hemoglobin 30 pg (26-34); Mean Corpuscular Volume 88 fL (80-100); Monocytes Percent Auto 7.4 % (0.0-11.0); Neutrophils Percent Auto 71.6 % (42.0-72.0); Platelet Count* 234 K/uL (140-440); RDW Coefficient of Variation % 14.3 % (11.5-15.5); White Blood Count* 11.45 K/uL (4.50-11.00)
[2024-05-22 18:04] LABS: Slide Review Reflex No
[2024-05-22] MEDS: INSULIN ASPART 100 UNIT/ML SUBCUT (18:05)
[2024-05-22 18:14] LABS: Creatinine* 0.5 mg/dL (0.5-1.5); Estimated Glomerular Filt Rate 129 ml/min
[2024-05-22 18:15] LABS: Alanine Aminotransferase* 19 U/L (4-35); Aspartate Amino Transferase* 28 U/L (12-35)
[2024-05-22 19:27] VITALS: BP 128/89; PULSE 85; TEMP 36.6
[2024-05-22 19:28] VITALS: PULSE 88; O2SAT 99
[2024-05-22] MEDS: INSULIN NPH 100 UNIT/ML 8 UNIT SUBCUT (21:13)
[2024-05-22 21:30] VITALS: RESP 18; TEMP 36.8
[2024-05-22] MEDS: hydrOXYzine pamoate 25 MG CAPSULE 100 MG PO (22:46)
[2024-05-22 23:16] VITALS: BP 140/78; PULSE 73; RESP 18; TEMP 36.8
[2024-05-23] VITALS (57 sets, daily range): BP systolic 106–148; BP diastolic 55–102; PULSE 65–100; RESP 16–18; TEMP 36.6–37; O2SAT 92–100
[2024-05-23] MEDS: MORPHINE 10 MG/ML inj IM (00:13)
[2024-05-23] MEDS: miSOPROStoL 25 MCG/0.25 TABLET VAGINAL ×3 (00:37→09:28)
--- NOTE | 2024-05-23 07:55 | PM.OBPNL ---
Subjective Time Seen by Provider: 07:55 Date Seen: 05/23/24 Narrative: Subjective: Patient feeling some cramping with Cytotec. She is status post 4 doses of Cytotec thus far. Vital signs: Per electronic medical record. EFM: Baseline 140s, positive accelerations, negative decelerations, moderate variability, reactive. Category 1. [place]: Contractions every 2-4 minutes. SVE: 2 cm/50 %/-2/medium consistency/mid. Assessment: 33-year-old 1 para 0 at 37 weeks 0 days gestation undergoing induction of labor for worsening chronic hypertension and GDM A2 on insulin Plan: 1. Will likely start Pitocin per induction protocol after she receives 5 doses of Cytotec 2. Considering epidural for labor analgesia 3. GBS negative 4. Blood type O positive 5. Typically takes her daytime insulin at lunch time and will likely have her take half of her dose at that time. Just finished breakfast. Blood sugars have been under good control during cervical ripening. Objective Vital Signs: Last Vital Signs Temp 98.4 F 05/23/24 07:23 Pulse 79 05/23/24 07:23 Resp 16 05/23/24 07:23 BP 129/85 05/23/24 07:23 Pulse Ox 99 05/22/24 19:28
[2024-05-23] MEDS: INSULIN NPH 100 UNIT/ML 15 UNIT SUBCUT (12:23)
--- NOTE | 2024-05-23 13:45 | PM.OBPNL ---
Subjective Time Seen by Provider: 01:15 Date Seen: 05/23/24 Narrative: Subjective: Continues to feel cramping after her 5th dose of Cytotec. Verbal consent obtained to perform artificial rupture of membranes. Pitocin to start at 1:30 p.m. Vital signs: Per electronic medical record. EFM: Baseline 130s, positive accelerations, negative decelerations, moderate variability, reactive. Category 1. [place]: Contractions every 2-5 minutes. SVE: 3 cm/50 %/-2/mid/moderate consistency. Arguello score 7. AROM clear fluid. Assessment: 33-year-old 1 para 0 at 37 weeks 0 days gestation undergoing induction of labor due to exacerbation of chronic hypertension in . Plan: 1. Start Pitocin per labor induction protocol at 1:30 p.m. today. 2. The patient is planning epidural for labor analgesia which she can have at any time. Objective Vital Signs: Last Vital Signs Temp 98.3 F 05/23/24 10:19 Pulse 95 05/23/24 13:02 Resp 17 05/23/24 10:19 BP 140/88 H 05/23/24 13:02 Pulse Ox 99 05/22/24 19:28
[2024-05-23] MEDS: LACTATED RINGERS 1000 ML 1,000 ML 125 ML IV (13:55)
[2024-05-23] MEDS: OXYTOCIN 30 unit/500 ML in NS 30 UNIT/500 ML BAG IVPB (13:55)
[2024-05-23] MEDS: LIDOCAINE 2% (PF) 5 ML VIAL EPIDURAL (15:10)
[2024-05-23] MEDS: ROPIVACAINE 0.2% 100 ml 100 ML 12 MG EPIDURAL ×2 (15:26→23:24)
--- NOTE | 2024-05-23 15:34 | P.ANBPRC_ITS ---
[facility] Medical History (Updated 05/16/24 @ 10:37 by Jessenia Zimmer MD) Primary female infertility ?N97.9 - Female infertility, unspecified (ICD-10) Surgical History (Updated 10/23/23 @ 10:43 by Mary Villa CNM) [place] teeth extracted ?K08.409 - Partial loss of teeth, unspecified cause, unspecified class (ICD- 10) History of appendectomy ?Z90.49 - Acquired absence of other specified parts of digestive tract (ICD- 10) Family History (Updated 10/23/23 @ 10:44 by Mary Villa CNM) Mother Cardiac arrhythmia Social History (Updated 10/23/23 @ 12:41 by Mary Villa CNM) Narrative: SOCIAL? ? Education: bachelors? ? Work: RN in ER at [employer] ? Partner: Tuan, , works in a penitentiary? ? Lives with: Tuan? ? Pets: 3 cats, dog ? ? Abuse: Denies past Safe at home with current partner ? ? Special Diet: Denies? ? Ok with a blood transfusion: yes? ? Culture or mormon beliefs: denies? RISK FACTORS? ? Exercise Times/wk: some walking? ? Depression/Anxiety: both? ? Previous Treatments: previously took zoloft, stopped about 3 years ago. Therapy: denies RADU: 3 PHQ 9: 2? ? Seat Belt Use: Routinely ? Smoking: Denies past/present? ? Alcohol/day: Denies while ? ? Caffeine: under 200? ? Drug Use: Denies past/present? What is your current living situation?: I presently have a place to live Problems where you live: no known problems In the past 12 months, utilities in danger of being shut off: no In past 12 months, lack of transportation kept you from medical appts, meetings, work, or getting things needed for daily living: no In the past 12 mos, have been you worried that your food would run out before you had money to buy more?: never true In the past 12 mos, the food you bought just didn't last and you didn't have money to buy more?: never true Smoking Status: Never smoker How often do you have a drink containing alcohol: never AUDIT-C Alcohol total score: 0 Non-prescribed substance use: denies use How often does anyone, including family, friends and others, physically hurt you : never How often does anyone, including family, friends and others, insult or talk down to you: never How often does anyone, including family, friends and others, threaten you with harm: never How often does anyone, including family, friends and others, scream or curse at you: never Little interest or pleasure in doing things: not at all Feeling down, depressed, or hopeless: several days Meds Home Medications and Allergies Home Medications ?Medication ?Instructions ?Recorded ?Confirmed ?Type docosahexaenoic acid PO 10/12/23 05/20/24 History aspirin 81 mg tablet,delayed 81 mg PO QDAY 01/25/24 05/22/24 History release Allergies Allergy/AdvReac Type Severity Reaction Status Date / Time No Known Drug Allergies Allergy Verified 05/22/24 18:44 Results Labs Labs: Laboratory Results - last 24 hr 05/22/24 17:50 WBC 11.45 H RBC 4.10 Hgb 12.2 Hct 35.9 MCV 88 MCH 30 MCHC 34 RDW Coeff of Mal 14.3 Plt Count 234 Neut % (Auto) 71.6 Lymph % (Auto) 19.7 L [place] % (Auto) 7.4 Eos % (Auto) 0.5 Baso % (Auto) 0.1 Neut # (Auto) 8.20 H Lymph # (Auto) 2.30 [place] # (Auto) 0.80 Eos # (Auto) 0.10 Baso # (Auto) 0.00 Abs Immat Gran (auto) 0.10 Imm/Tot Granulo (auto) 0.7 Creatinine 0.5 Estimated GFR 129 AST 28 ALT 19 Blood Type O Positive Antibody Screen NEGATIVE Vital Signs Vital Signs: Last Vital Signs Temp 98.2 F 05/23/24 14:53 Pulse 72 05/23/24 15:33 Resp 16 05/23/24 14:53 BP 121/78 05/23/24 15:33 Pulse Ox 92 05/23/24 15:18 Weight: 114.169 kg Anesthesia Procedures Epidural Insertion Patient Location: OB Start Time: 14:42 Stop Time: 15:42 Start Date: 05/23/24 Stop Date: 05/23/24 Reason for Block: procedure for pain Patient Position: sitting Performed By: Angel,Lety J Preanesthetic Checklist: IV checked, risks and benefits discussed, monitors and equipment checked, pre-op evaluation, timeout performed and anesthesia consent Prep: chlorhexidine gluconate Monitoring: blood pressure monitoring, continuous pulse oximetry and heart rate Approach: midline Vertebral Space: lumbar (1-5) Epidural Technique: MIKEL saline Needle Type: Tuohy needle Injection Technique: continuous catheter (continuous catheter) Needle gauge: 17 Needle Length (cm): 10 cm Needle Insertion Depth (cm): 9 Catheter Gauge: 19 Catheter Type: multi-orifice Catheter at skin depth (cm): 15 Test Dose Result: negative and lidocaine 1.5% with epinephrine 1 to 200,000
[2024-05-23] MEDS: LACTATED RINGERS 1000 ML 1,000 ML 25 ML IV (16:05)
--- NOTE | 2024-05-23 18:17 | PM.OBPNL ---
Subjective Time Seen by Provider: 18:17 Date Seen: 05/23/24 Narrative: Subjective: Patient is comfortable w/ epidural. Pitocin: 6 milliunits/minute. Patient is feeling very anxious about having no sensation in her legs or having any discomfort was cervical exams with the epidural. At this point she is going to keep the epidural as it is but I told her that we could contact the nurse outside industrial sales representative and have them turn the epidural down so that she would have a little bit more sensation. The balance between having good pain control and inadequate pain control is sometimes somewhat difficult. Verbal consent to place intrauterine pressure catheter to adequately monitor contractions that are difficult to evaluate externally due to patient body habitus. Vital signs: Per electronic medical record. EFM: Baseline 130, positive accelerations, 2 spontaneous decelerations in the last hour, monitor variability, reactive. Category 2. [place]: Contractions every 2-5 minutes. IUPC placed SVE: 4 cm/70 %/-1. Assessment: 33-year-old 1 para 0 at 37 weeks 0 days gestation undergoing induction of labor due to chronic hypertension with gestational exacerbation Plan: 1. Continue Pitocin per labor induction protocol. 2. Considering epidural for labor analgesia Objective Vital Signs: Last Vital Signs Temp 98.4 F 05/23/24 17:40 Pulse 67 05/23/24 18:12 Resp 17 05/23/24 17:40 BP 138/82 05/23/24 18:12 Pulse Ox 92 05/23/24 15:18
[2024-05-23] MEDS: ACETAMINOPHEN 500 MG TABLET 1000 MG PO (20:29)
[2024-05-23] MEDS: INSULIN NPH 100 UNIT/ML 8 UNIT SUBCUT (21:19)
[2024-05-24] VITALS (32 sets, daily range): BP systolic 107–144; BP diastolic 53–88; PULSE 66–108; RESP 16–18; TEMP 36.4–37.1; O2SAT 96–98
[2024-05-24] MEDS: miSOPROStoL 800 MCG/4 TABLET PR (03:43)
[2024-05-24] MEDS: TRANEXAMIC ACID 100 MG/ML INJ 1000 MG IV (03:55)
[2024-05-24] MEDS: ONDANSETRON 2 MG/ML inj 4 MG IV (04:05)
--- NOTE | 2024-05-24 04:24 | W.PM.OBVAGDE ---
OB Procedure Vag Delivery Mother Details Mother Details: The patient is a 33 year-old, 1, Para 0, admitted on 05/22/24 at 36 weeks 6 days gestation for induction of labor due to chronic hypertension with gestational exacerbation and gestational diabetes requiring insulin. AROM occurred at 1:20 p.m. on 05/23/2024 with clear fluid. Labor Analgesia: Epidural Pitocin: Yes Labor onset: 05/23/2024 at 2:33 p.m.. Complete: 05/24/2024 at 1:00 a.m.. Pushin05/24/2024 at 1:10 a.m.. heart tones during second stage were: Category 2 and reassuring with moderate variability and intermittent early or variable decelerations with contractions. At 3:17 a.m. a viable male infant delivered in vertex direct OA presentation over first-degree vaginal and first-degree right periurethral lacerations via spontaneous vaginal delivery. The infant was placed on maternal abdomen. Cord was clamped and cut after a 60 second delay. Nose and mouth were bulb suctioned. weight pending. 7 at 1 minute and 8 at 5 minutes. Shoulder dystocia: No. Nuchal cord: No Placenta delivered manually and complete with a succenturiate lobe at 3:45 a.m. with a 3 vessel cord. Lower uterine segment atony was noted after delivery of the placenta. The patient received 30 units Pitocin in 500 mL IV fluid 300 mL/hour, 800 mg Cytotec rectally and 1 g IV TXA. A [place] device was then placed to treat lower uterine segment atony. The patient tolerated manual extraction of the placenta as well as multiple manual removal of blood clots from the lower uterine segment very well with her epidural. Laceration(s): Vaginal 1st degree and periurethral first-degree. Repaired using Vicryl suture in a running manner. Blood loss: 600 mL. Blood loss measurement type: Quantitative Sponge and needles counts are correct. Specimen: Placenta Mother and infant were stable after delivery. 's name: Marcelina The patient is planning on breast feeding. : 1 Weeks Gestation: 37 Admission Date: 05/22/24 Additional Details Amniotic Membrane Status: AROM Amniotic Membrane Rupture Date: 05/23/24 Amniotic Membrane Rupture Time: 13:20 Amniotic Membrane Fluid Description: Clear Analgesia/Anesthesia Type: Epidural Waterbirth: No Pitcoin: Yes Intrapartal Events: Labor Induction and Excessive Bleeding Induction Method: per misoprostol protocol, per pitocin protocol and AROM Labor Onset: 14:33 (on 05/23/2024) Complete: 01:00 (on 05/24/2024) Pushin:10 (on 05/24/24) Heart: heart tones during second stage were category 2: moderate variability with early/variable decelerations intermittently with contractions. Delivery Details Delivery Date: 05/24/24 Delivery Time: 03:17 Route of delivery: Gender: Male Infant Viability: Alive; Heart Rate Present Position at Delivery: OA Delivery Details: Delivered over first-degree vaginal and first-degree right periurethral lacerations via spontaneous vaginal delivery. Infant was placed on maternal abdomen.? Cord was clamped and cut after a 60 second delay. Nose and mouth were bulb suctioned.? Infant weight pending. 1 Minute Interval Total Score: 7 5 Minute Interval Total Score: 8 Additional Details Shoulder Dystocia: No Placenta Delivery Time: 03:45 Placental Delivery Description: Manual Removal Delivery repair: Vicryl Procedure Done: Global Blood Loss: 600 Laceration: Vaginal - 1st Degree (And periurethral first-degree on the right) Blood Loss Measurement Type: QBL Sponge/Need Count Correct: Yes Cord Vessel Description: 3 Vessels Event Summary Status: Mother and infant were stable after delivery. Disposition: floor
[2024-05-24] MEDS: CEFAZOLIN 2 GM in 0.9 % SODIUM CHLORIDE Mini-bag 100 ML IVPB (05:34)
[2024-05-24] MEDS: IBUPROFEN 600 MG TABLET PO ×3 (06:19→19:54)
[2024-05-24] MEDS: ACETAMINOPHEN 500 MG TABLET 1000 MG PO ×3 (08:04→23:24)
[2024-05-24 09:26] LABS: INR 0.96 (0.91-1.10); Prothrombin Time 13.3 Seconds
[2024-05-24 09:28] LABS: Partial Thromboplastin Time* 26 Seconds (23-33)
[2024-05-24 09:48] LABS: Fibrinogen* 548 mg/dL (200-450)
[2024-05-24 10:40] LABS: Basophils Percent Auto 0.1 % (0.0-3.0); Eosinophils Percent Auto 0.1 % (0.0-7.0); Hematocrit 33.4 % (33.0-51.0); Hemoglobin* 11.6 gm/dL (12.0-16.0); Immature Granulocytes Pct Auto 0.3 %; Mean Corpuscular HGB Conc 35 gm/dL (32-36); Mean Corpuscular Hemoglobin 30 pg (26-34); Mean Corpuscular Volume 87 fL (80-100); Monocytes Percent Auto 5.9 % (0.0-11.0); Neutrophils Percent Auto 83.6 % (42.0-72.0); Platelet Count* 223 K/uL (140-440); RDW Coefficient of Variation % 14.3 % (11.5-15.5); Red Blood Count 3.82 m/uL (4.00-5.20); White Blood Count* 20.58 K/uL (4.50-11.00)
[2024-05-24 10:41] LABS: Slide Review Reflex No
[2024-05-24] MEDS: DOCUSATE SODIUM 100 MG CAPSULE PO (12:48)
--- NOTE | 2024-05-24 14:27 | PM.ANPOST ---
Post Anesthesia Note Post Anesthesia Note Patient seen: Inpatient Respiratory Status: adequate Cardiovascular Status: adequate Mental Status: baseline Pain: adequate Temp: baseline Anesthetic awareness: N/A Complications: none Follow care: none
[2024-05-24] MEDS: SODIUM CHLORIDE 0.9 % (FLUSH) 10 ML SYRINGE IVF (17:59)
[2024-05-25 00:51] LABS: Rapid Plasma Reagin (RPR) Non Reactive (Non Reactive)
[2024-05-25] MEDS: IBUPROFEN 600 MG TABLET PO ×2 (01:16→11:53)
[2024-05-25 06:49] LABS: Hemoglobin* 10.1 gm/dL (12.0-16.0)
--- NOTE | 2024-05-25 07:15 | PC.NURSE ---
Fasting POC blood sugar this AM at 0715 was 68.
[2024-05-25 08:10] VITALS: BP 118/74; PULSE 100; RESP 16; TEMP 36.6; O2SAT 98
--- NOTE | 2024-05-25 08:10 | P.DS_ITS ---
DS: Providers Provider Time Seen by Provider: 08:10 Date Seen: 05/25/24 Date of admission: 05/22/24 15:44 Primary care physician: Norma Rodriguez PA-C Admitting Clinician: Chanda Weaver MD Attending Physician on discharge: Ursula Blue MD DS: Diagnosis Discharge Diagnosis (1) (normal spontaneous vaginal delivery): Status: Acute (2) Chronic hypertension affecting : Status: Acute Exam Narrative: Exam Narrative: General: Pleasant, , well groomed woman in no acute distress. Vital signs: Included in her electronic medical record. Heart: Regular rate and rhythm without gallop rub or murmur. Chest: Clear to auscultation bilaterally. Abdomen: Fundus firm at 1 cm below the umbilicus in the midline. Soft, nontender, nondistended with normal bowel sounds throughout. Extremities: No pain or edema. Const: Vital Signs, click to edit/add: Vital Signs - 24 hr 05/24/24 12:28 05/24/24 16:17 05/24/24 20:16 Temperature 97.8 F 97.7 F 98 F Pulse Rate [Pulse Oximeter] 86 99 93 Respiratory Rate 18 18 18 Blood Pressure [Le ft Arm] 139/85 123/88 113/76 Pulse Oximetry 96 98 97 Oxygen Delivery Me thod Room Air Room Air Room Air 05/24/24 23:27 Temperature 97.6 F Pulse Rate [Pulse Oximeter] 93 Respiratory Rate 18 Blood Pressure [Le ft Arm] 109/68 Pulse Oximetry 97 Oxygen Delivery Me thod Room Air OB - DS: Summary Hospital Course Hospital Course: The patient is a 33 year old G 1 P 1 at 37 weeks gestation that was admitted to the Center on 05/22/24 for induction of labor due to chronic hypertension with gestational exacerbation and GDM A2. She had an uncomplicated vaginal delivery. She delivered a viable male . She is breast feeding and supplementing. the patient has done well. She would like to be discharged home today. I recommended that she follow-up in the office on Monday05/28/2024 for a blood pressure check. She is not currently on and blood pressure medications and her blood pressure has been normal . Peripartum Data delivery method: Vaginal Laceration description: Periurethral - 1st Degree complications: none Gender: Male Status at Discharge Functional status at discharge: independent ambulation Overall status at discharge: patient is progressing back to baseline Time Spent with Patient Time attestation: Total time spent providing and/or coordinating discharge services: Discharge Plan Discharge Disposition: Home, Self-Care Date of Admission: 05/22/24 15:44 Attending Provider on Discharge: Ursula Blue Consulting Providers: Ursula Blue Primary Care Provider: Norma Rodriguez Condition: Stable Anticipated Discharge Date/Time: 05/25/24 12:30 Discharge Medications: New docusate sodium 100 mg Capsule 100 mg PO BID PRNQty: 100 0RF ibuprofen 600 mg Tablet 600 mg PO Q6H PRNQty: 30 0RF Discontinued aspirin 81 mg tablet,delayed release (DR/EC) 81 mg PO QDAY omeprazole 20 mg capsule,delayed release(DR/EC) 20 mg PO BID Qty: 60 1RF (DME) insulin syringe-needle U-100 [Sure Comfort Insulin Syringe] 1 mL 30 gauge x 5/16 syringe See Rx Instructions .ROUTE .MEDSUPPLY Qty: 100 3RF Rx Instructions: As directed alcohol swabs Pads, Medicated 1 pad topical DAILY Qty: 100 1RF docosahexaenoic acid [ DHA] 1 cap PO DAILY (DME) Test Strips Misc See Rx Instructions .MEDSUPPLY Qty: 100 3RF Rx Instructions: Test blood sugar 4 times daily. (DME) lancets Misc See Rx Instructions .MEDSUPPLY Qty: 100 3RF Rx Instructions: Test blood sugar 4 times daily. (DME) Blood Glucose Meter Misc See Rx Instructions .MEDSUPPLY Qty: 1 0RF Rx Instructions: As directed (DME) Dexcom G7 Sensor Device See Rx Instructions .Route Qty: 2 1RF Rx Instructions: As directed Humulin N NPH U-100 Insulin 100 unit/mL suspension 30 unit subcut QAM Qty: 10 2RF Rx Instructions: NPH 30 units in a.m. NPH 17 units in p.m. Please continue to monitor and report your blood glucose levels as previously instructed. Discharge Orders: Discharge Order (Routine); Ordered 05/25/24 Ordered By: Ursula Blue Patient Education: Vaginal Delivery (DC) Additional Instructions: ACTIVITY RESTRICTIONS: * Nothing vaginally for 6 weeks: no tampons/intercourse NO RESTRICTIONS for: * Walking * Going up/down stairs * Showering/bathing Symptoms to report to doctor: -Bleeding that saturates more than one pad per hour ?-Passing clots larger than the size of a golf ball ?-Pain not relieved by prescribed medication ?-Fever above 100.4 degrees Fahrenheit ?-A foul vaginal odor ?-Difficulty in emotions, mood and functions ?-Thoughts of hurting yourself and/or ?-Painful, reddened area in your breast ?-Any drainage, redness or tenderness in your IV/epidural site ?-Severe headache that doesn't improve after taking medications ?-Changes in vision, including temporary loss of vision, blurred vision, and/or light sensitivity ?-Upper abdominal pain (usually under ribs on the right side) ?-Decrease in urination or painful, frequent urinating ?-Chest pain ?-Shortness of breath ?-Tenderness or pain with redness and/swelling in the calf(s) of your leg Follow-up: 1. [facility]24 for a blood pressure check. 2. Optional 2 week exam to discuss contraceptive options and screen for anxiety/depression 3. A 6 week visit for an annual physical exam. consultation services are available to all mothers and babies for the first year after delivery.? To make an appointment, please call [phone]. Activity Level: Other Discharge Diet: Regular Follow Up Appointments: Norma Rodriguez PA-C [Primary Care Provider] - [facility] [Provider Group] Forms: MyHealth Info Instructions
[2024-05-25] MEDS: ACETAMINOPHEN 500 MG TABLET 1000 MG PO (08:14)
[2024-05-25] MEDS: DOCUSATE SODIUM 100 MG CAPSULE PO (08:14)
[2024-05-25 15:50] VITALS: BP 117/82; PULSE 92; RESP 16; TEMP 36.6; O2SAT 98
== END 2024-05-25 17:30 | disposition home or self-care (01) | DRG 541 ==
PROVIDERS: Obstetrics & Gynecology; Admitting Provider Obstetrics & Gynecology; PCP Physician Assistant Medical; Visit Provider Obstetrics & Gynecology
DX: O10.92 Unspecified pre-existing hypertension complicating childbirth (principal); O72.0 Third-stage hemorrhage; O62.2 Other uterine inertia; O70.0 First degree perineal laceration during delivery; O71.82 Other specified trauma to perineum and vulva; O36.8130 Decreased fetal movements, third trimester, not applicable or unspecified; O24.424 Gestational diabetes mellitus in childbirth, insulin controlled; O43.193 Other malformation of placenta, third trimester; O99.284 Endocrine, nutritional and metabolic diseases complicating childbirth; E28.2 Polycystic ovarian syndrome; K21.9 Gastro-esophageal reflux disease without esophagitis; Z3A.36 36 weeks gestation of pregnancy; Z37.0 Single live birth; O24.419 Gestational diabetes mellitus in pregnancy, unspecified control
CPT/HCPCS: 01967; 36415; 59025; 59200; 76819; 82565; 82570; 84156; 84450; 84460; 84520; 85018; 85025; 85027; 85384; 85610; 85730; 86592; 86850; 86900; 86901; 88307; G0463; A9270; J0690; J1815; J2270; J2371; J2405; J2795; J7120

== ENCOUNTER 2024-07-05 08:34 | Outpatient (CLI) | payer BC, SELFPAY | END 2024-07-05 08:35 | disposition home or self-care (01) | LOC: NFLDREF 07-06 00:52 | PROVIDERS: PCP Physician Assistant Medical; Referring Provider Physician Assistant Medical; Visit Provider Advanced Practice Midwife | DX: Z39.2 Encounter for routine postpartum follow-up (principal) | CPT/HCPCS: 82947; 82950 ==

== ENCOUNTER 2025-02-11 14:52 | Outpatient (CLI) | payer BC, SELFPAY ==
[2025-02-13 19:05] LABS: HPV Source Cervix
[2025-02-15 20:47] LABS: Pap Test Digital Imaging Done
== END 2025-02-11 14:53 | disposition home or self-care (01) ==
PROVIDERS: PCP Physician Assistant Medical; Visit Provider Midwife
DX: Z12.4 Encounter for screening for malignant neoplasm of cervix (principal); Z11.51 Encounter for screening for human papillomavirus (HPV)
CPT/HCPCS: 87624; 87625; 88141; 88142; 88175